=== PATIENT | female | born 1995 ===

== ENCOUNTER 2016-07-27 12:21 | Emergency (ER) | payer BC ==
[2016-07-27 13:51] VITALS: BP 113/69
--- NOTE | 2016-07-27 14:41 | UC ---
Throat Pain/Nasal Harman HPI - HPI Summary HPI Summary: Feeling Nauseated since Saturday. She feels a lump in left throat that she feels keeps getting bigger and bigger. She says that she has had an abcess before and she thinks it is again. She saw Dr Gurrola before and he drained the abcess. She is able to swallow her own spit but says it hurts to swallow anything else. Per patient she had peritonsilar abscess drained in March on the right side and feels like she has one on the left side at this time. [ End ] - History of Current Complaint Chief Complaint: UCRespiratory Stated Complaint: STOMACH COMPLAINT/SORE THROAT Time Seen by Provider: 07/27/16 14:32 Hx Obtained From: Patient Hx Last Menstrual Period: 07/13/16 ?: No Onset/Duration: Gradual Onset Severity: Moderate Cough: Nonproductive - Allergies/Home Medications Allergies/Adverse Reactions: Allergies Allergy/AdvReac Type Severity Reaction Status Date / Time No Known Allergies Allergy Verified 07/27/16 13:51 Home Medications: Home Medications Adalimumab (NF) [Humira Pen (NF)] 40 mg SUBCUT SEE INSTRUCTIONS 07/27/16 [ History Confirmed 07/27/16] Cholestyramine Resin* [Questran*] 4 gm PO BID PRN 07/27/16 [History Confirmed ] PMH/Surg Hx/FS Hx/Imm Hx Previously Healthy: Yes Endocrine History Of: Denies: Diabetes Cardiovascular History Of: Denies: Cardiac Disorders Respiratory History Of: Denies: COPD GI/ History Of: Denies: Gastroesophageal Reflux Psychological History Of: Denies: Anxiety Cancer History Of: Denies: Lung Cancer Other History Of: Negative For: HIV - Surgical History Surgical History: Yes Surgery Procedure, Year, and Place: gallbladder 2013. Colon resection w/ appy - Social History Alcohol Use: Weekly Substance Use Type: None Smoking Status (MU): Never Smoked Tobacco Review of Systems Constitutional: Fever, Chills, Fatigue Skin: Negative Eyes: Negative ENT: Sore Throat, Nasal Discharge Respiratory: Negative Cardiovascular: Negative Gastrointestinal: Negative Genitourinary: Negative Motor: Negative Neurovascular: Negative Musculoskeletal: Negative Neurological: Negative Psychological: Negative All Other Systems Reviewed And Are Negative: Yes Physical Exam Triage Information Reviewed: Yes Appearance: Well-Appearing Vital Signs: Initial Vital Signs Temp 102.0 F 07/27/16 13:45 Pulse 133 07/27/16 13:45 Resp 14 07/27/16 13:45 BP 113/69 07/27/16 13:45 Pulse Ox 98 07/27/16 13:45 Vital Signs Reviewed: Yes Eye Exam: Normal ENT Exam: Normal ENT: Positive: Pharyngeal erythema, Nasal drainage, Tonsillar swelling - significant swelling, Tonsillar exudate Dental Exam: Normal Neck exam: Normal Neck: Positive: Enlarged Nodes @ - left anterior cervical Respiratory Exam: Normal Cardiovascular Exam: Normal Abdominal Exam: Normal Musculoskeletal Exam: Normal Neurological Exam: Normal Psychological Exam: Normal Skin Exam: Normal Throat Pain/Nasal Course/Dx - Differential Dx/Diagnosis Provider Diagnoses: Peritonsilar abscess left sided - Physician Notification/Consults Discussed Patient Care With: Dr Gurrola treated her for similar episode 03/2016 and he was notified. Patient was advised to start antibiotics and can be seen at 10am in [place] by Dr Gurrola Discharge - Discharge Plan Condition: Good Disposition: HOME Prescriptions: Amoxicillin/Clavulanate TAB* [Augmentin TAB 875*] 875 mg PO BID #20 tab Patient Education Materials: Peritonsillar Abscess (ED) Additional Instructions: As we discussed you are to go to see Dr Gurrola in 1 day tomorrow at 10 am in [place]. Phone number [phone] and go to [address] [place] [address] in [place].
[2016-07-27] MEDS ORDERED: Ibuprofen TAB* 600 MG PO ONE (14:43)
== END 2016-07-27 14:54 | disposition home or self-care (01) ==
LOC: UCCORT 12:21
DX: J36 Peritonsillar abscess (principal); R50.9 Fever, unspecified; R09.81 Nasal congestion
CPT/HCPCS: 87651; 99202; A9270-GY; G0463